=== PATIENT | female | born 1990 ===

== ENCOUNTER 2019-02-15 09:54 | Inpatient (IN) | payer OTHER ==
[2019-02-15] MEDS ORDERED: Ondansetron PF 4 MG/2 ML Vial IVP PRN ×3 (10:12→16:02)
[2019-02-15] MEDS ORDERED: hydrALAZINE 20 MG/ML VIAL SLOW IVP PRN ×2 (10:12→16:02)
[2019-02-15] MEDS ORDERED: Promethazine HCl 25 MG/ML VIAL IM PRN ×3 (10:12→16:02)
[2019-02-15] MEDS ORDERED: Lactated Ringer's 1,000 ML IV SCH (10:15)
[2019-02-15] MEDS ORDERED: CEFAZOLIN 2 GM in Premix Bag 1 BAG IVPB SCH (10:15)
[2019-02-15] MEDS ORDERED: Bicitra 30 ML UDCUP PO SCH (10:15)
[2019-02-15] MEDS ORDERED: Lidocaine 1% (PF) 30 ML VIAL ONE (10:16)
--- NOTE | 2019-02-15 10:16 | PDOC.LDHP ---
Labor and Delivery H&P Chief complaint: scheduled section HPI: 28 Y/O AT 39 AND 0/7 WEEKS FOR SCHEDULED DUE TO SUSPECTED CPD /LGA FETUS/NARROW PELVIC BONE STRUCTURE. Current gestational age (weeks): 39 Due date: 02/22/19 Grav: 2 Para: 0 Current complications: other Abnormal US findings: No Current medications: pre-gigi vitamins Previous surgical history: none Social history: none - Physical Exam Vital signs reviewed and normal: yes General: NAD, resting Heart: RRR Lungs: CTAB Abdomen: gravid Extremeties: no edema FHT: category 1 - Assessment L&D Assessment: scheduled primary section - Plan Plan: admit to L&D, to OR for section
[2019-02-15 11:07] VITALS: BMI 35.5
[2019-02-15 11:14] LABS: Hemoglobin 10.8 g/dL (12.0-16.0); Mean Corpuscular HGB CONC 33.5 g/dL (32.0-36.0); Mean Corpuscular Hemoglobin 30.5 pg (27.0-31.0); Mean Corpuscular Volume 91.3 fL (78.0-98.0); Mean Platelet Volume 7.8 fL (7.4-10.4); Platelet Count 267 thou/uL (130-400); RBC Distribution Width 11.4 % (11.5-14.5); Red Blood Cell (RBC) Count 3.53 mill/uL (4.20-5.40); White Blood Cell (WBC) Count 11.1 thou/uL (4.8-10.8)
[2019-02-15] MEDS ORDERED: Clindamycin/D5W 900 mg/50 ml Premix Bag ONE (11:34)
[2019-02-15] MEDS ORDERED: Fentanyl 100 MCG/2 ML VIAL ONE ×2 (11:48→13:48)
[2019-02-15] MEDS ORDERED: Oxytocin 10 UNITS/ML VIAL ONE (11:49)
[2019-02-15] MEDS ORDERED: ePHEDrine/0.9% NaCl/PF SYRINGE 50 mg/10 ml ONE (11:50)
[2019-02-15] MEDS ORDERED: MORPHINE 5 MG/10 ML PF VIAL ONE (11:50)
[2019-02-15] MEDS ORDERED: PHENYLEPHRINE-NS 100 MCG/ML 10 ML SYRINGE ONE (11:50)
[2019-02-15] MEDS ORDERED: Ketorolac Tromethamine 30 MG/ML VIAL ONE (11:51)
[2019-02-15 12:00] LABS: Syphilis Antibody Nonreactive (Nonreactive); Syphilis Antibody Index 0.04 S/CO (<1.00 Non-Reactive)
[2019-02-15 12:01] LABS: HBSAg Index 0.14 S/CO (0-0.99); Hep B Surf Ag Non-Reactive S/CO (NonReactive)
[2019-02-15] MEDS ORDERED: Clindamycin/D5W 900 MG in Premix Bag 1 BAG IVPB SCH (12:15)
[2019-02-15] MEDS ORDERED: diphenhydrAMINE 50 MG/ML VIAL IVP PRN (12:53)
[2019-02-15] MEDS ORDERED: Ondansetron HCl/PF 4 MG/2 ML Vial IVP PRN (12:53)
[2019-02-15] MEDS ORDERED: Meperidine HCl/PF 25 MG/ML VIAL SLOW IVP PRN (12:53)
[2019-02-15] MEDS ORDERED: Naloxone HCl 0.4 mg/ml Vial IV PRN (12:53)
[2019-02-15] MEDS ORDERED: Naloxone HCl 0.4 mg/ml Vial IVP PRN ×2 (12:53)
[2019-02-15] MEDS ORDERED: Promethazine HCl 25 MG SUPP PR PRN (12:53)
[2019-02-15] MEDS ORDERED: Methylergonovine 0.2 MG/ML VIAL ONE (12:55)
[2019-02-15] MEDS ORDERED: Communication Order-Pharmacy FS SCH (13:00)
[2019-02-15] MEDS ORDERED: KETAMINE 100 MG/ML (5ML VIAL) ONE (13:48)
[2019-02-15] MEDS ORDERED: Midazolam HCl 2 mg/2 ml Vial ONE (13:48)
[2019-02-15] MEDS ORDERED: Midazolam HCl 5 mg/5 ml Vial ONE (13:48)
[2019-02-15] MEDS ORDERED: Bicitra 30 ML UDCUP ONE (13:48)
[2019-02-15] MEDS ORDERED: NS / Oxytocin 40 units/1000ml 1,000 ML ONE (15:25)
[2019-02-15] MEDS ORDERED: Misoprostol 200 MCG TAB PR PRN (16:02)
[2019-02-15] MEDS ORDERED: NS / Oxytocin 40 units/1000ml 1,000 ML IV SCH (16:02)
[2019-02-15] MEDS ORDERED: Lanolin Ointment 7 GM TUBE TOP PRN (16:02)
[2019-02-15] MEDS ORDERED: Zolpidem Tartrate 5 MG TAB PO PRN (16:02)
[2019-02-15] MEDS ORDERED: Methylergonovine 0.2 MG/ML VIAL IM PRN (16:02)
[2019-02-15] MEDS ORDERED: Bisacodyl 10 MG SUPP PR PRN (16:02)
[2019-02-15] MEDS ORDERED: Adacel (T-DAP) 0.5 ML SYRINGE IM ONE (17:00)
[2019-02-15] MEDS ORDERED: Varicella virus, LIVE 0.5 ML VIAL SC ONE (17:00)
[2019-02-15] MEDS ORDERED: Measles/Mumps/Rubella 10 MCG/0.5 ML VIAL SC ONE (17:00)
[2019-02-15] MEDS: Ketorolac Tromethamine 30 MG/ML VIAL IVP PRN (18:56)
[2019-02-15] MEDS: Simethicone Chewable 80 MG TAB PO PRN (21:49)
[2019-02-15] MEDS: Docusate Calcium (SURFAK) 240 MG CAP PO SCH (21:50)
[2019-02-15] MEDS: Ibuprofen 800 MG TAB PO SCH (22:21)
[2019-02-16] MEDS: Ketorolac Tromethamine 30 MG/ML VIAL IVP PRN (04:27)
[2019-02-16] MEDS: HYDROcodone/Acetaminophen 5/325 mg Tablet PO PRN ×3 (04:28→16:55)
[2019-02-16] MEDS: Ibuprofen 800 MG TAB PO SCH ×3 (04:44→21:16)
--- NOTE | 2019-02-16 06:12 | PDOC.PP ---
Post Progress Note Post Day #: POD1 Subjective: Resting, no c/o. PO intake tolerated: yes Flatus: no Ambulation: no Vital Signs (12 hours) Temp Pulse Resp BP Pulse Ox 02/16/19 04:30 75 16 106/55 L 02/16/19 00:15 99.0 F 84 16 107/56 L 02/15/19 19:04 98.9 F 85 16 129/74 96 Weight Weight 99.79 kg - Physical Examination General: NAD Respiratory: non-labored breathing Abdominal: no distention, appropriately TTP Extremities: negative homans (B) Skin: CS incision dry & intact Neurological: no gross focal deficits Psychiatric: normal affect Result Diagrams: 02/15/19 11:05 Additional Labs: Post Labs Blood Type A POSITIVE 02/15/19 11:30 Hep Bs Antigen Non-Reactive S/CO (NonReactive) 02/15/19 11:05 - Assessment/Plan Doing well s/p 1* C/S. Routine postop care.
[2019-02-16 06:59] LABS: Hemoglobin 10.2 g/dL (12.0-16.0); Mean Corpuscular HGB CONC 33.6 g/dL (32.0-36.0); Mean Corpuscular Hemoglobin 30.7 pg (27.0-31.0); Mean Corpuscular Volume 91.3 fL (78.0-98.0); Mean Platelet Volume 7.8 fL (7.4-10.4); Platelet Count 245 thou/uL (130-400); RBC Distribution Width 11.7 % (11.5-14.5); Red Blood Cell (RBC) Count 3.32 mill/uL (4.20-5.40); White Blood Cell (WBC) Count 11.1 thou/uL (4.8-10.8)
[2019-02-16] MEDS: Prenatal Vitamin 1 TAB PO SCH (08:28)
[2019-02-16] MEDS: Docusate Calcium (SURFAK) 240 MG CAP PO SCH ×2 (08:29→21:16)
[2019-02-16] MEDS: Simethicone Chewable 80 MG TAB PO PRN ×2 (08:35→21:16)
[2019-02-17] MEDS: HYDROcodone/Acetaminophen 5/325 mg Tablet PO PRN ×4 (05:48→23:21)
[2019-02-17] MEDS: Ibuprofen 800 MG TAB PO SCH ×3 (05:48→21:25)
--- NOTE | 2019-02-17 08:29 | PDOC.PP ---
Post Progress Note Post Day #: 2 Subjective: Patient voiding, ambulating & tolerating PO well. Passing gas but no BM yet. Reports pain is well-controlled. No excess bleeding or incision site issues. Breast feeding and states it is going ok. PO intake tolerated: yes Flatus: yes Ambulation: yes Vital Signs (12 hours) Temp Pulse Resp BP Pulse Ox 02/17/19 00:30 98.5 F 75 16 100/51 L 02/16/19 21:15 98.6 F 80 16 110/65 98 Weight Weight 99.79 kg - Physical Examination General: NAD Cardiovascular: no m/r/g, RRR Respiratory: clear to auscultation bilaterally, non-labored breathing Abdominal: + bowel sounds, lochia, no distention, appropriately TTP Extremities: negative homans (B) Skin: CS incision dry & intact, no rash Neurological: no gross focal deficits Psychiatric: A&Ox3, normal affect Result Diagrams: 02/16/19 06:28 Additional Labs: Post Labs Blood Type A POSITIVE 02/15/19 11:30 Hep Bs Antigen Non-Reactive S/CO (NonReactive) 02/15/19 11:05 (1) care following delivery Code(s): Z39.2 - ENCOUNTER FOR ROUTINE FOLLOW-UP Status: Acute - Assessment/Plan 28YO who is PP day #2 s/p primary LTCS for suspected CPD/LGA fetus w/ narrow pelvic bone structure @ 39 WGA. PP day #2 s/p 1LTCS: - Patient doing well. Continue routine PP care. Dispo: Anticipate d/c home tomorrow. Addendum - Attending - Attending Attestation Date/Time: 02/19/19 3248 I personally evaluated the patient and discussed the management with Dr. Barba. I agree with the History, Examination, Assessment and Plan documented above.
[2019-02-17] MEDS: Docusate Calcium (SURFAK) 240 MG CAP PO SCH ×2 (09:08→21:25)
[2019-02-17] MEDS: Simethicone Chewable 80 MG TAB PO PRN ×2 (09:08→18:08)
[2019-02-17] MEDS: Prenatal Vitamin 1 TAB PO SCH (09:08)
[2019-02-18] MEDS: Ibuprofen 800 MG TAB PO SCH ×2 (05:26→14:19)
[2019-02-18 08:39] VITALS: BP 115/78; TEMP 97.7
[2019-02-18] MEDS: Docusate Calcium (SURFAK) 240 MG CAP PO SCH (09:27)
[2019-02-18] MEDS: Prenatal Vitamin 1 TAB PO SCH (09:27)
[2019-02-18] MEDS: HYDROcodone/Acetaminophen 5/325 mg Tablet PO PRN ×2 (09:43→17:24)
--- NOTE | 2019-02-19 14:36 | OP ---
DATE OF PROCEDURE: 02/15/2019 TIME OF SERVICE: At 1245, Central Standard Time. PREOPERATIVE DIAGNOSIS: Intrauterine at 39 weeks with a history of tpwuc-pub-lcmibgqkrbt-age fetus, suspected cephalopelvic disproportion. The patient declined trial of labor in preference of primary . POSTOPERATIVE DIAGNOSIS: Intrauterine at 39 weeks with a history of wkxez-qlb-aoynwvxkjgp-age fetus, suspected cephalopelvic disproportion. The patient declined trial of labor in preference of primary . PROCEDURE: Primary low transverse section. FINDINGS: Viable female infant weighing 3995 g or 8 pounds 13 ounces. Apgars of eight and nine. QUANTITATIVE BLOOD LOSS: 650 mL. COMPLICATIONS: None. DETAILS OF THE PROCEDURE: The patient was consented and taken back to the operating room where spinal anesthesia was found to be adequate. She was then prepped and draped in the normal sterile fashion. A timeout was performed by the entire operative team. The incision was then marked with a marking pen tested using sharp pickups. An incision was then made with a scalpel. The incision was carried through the adipose tissue down to the underlying rectus fascia using both sharp dissection as well as cautery. Once the fascia was identified, it was incised in the midline and then the fascial incision was carried through in both lateral directions using sharp as well as cautery dissection techniques. Next, the superior aspect of the rectus fascia was grasped with 2 Logan clamps, which was tented up and the rectus muscles were dissected off using blunt dissection as well as cautery dissection. Similarly, the inferior aspect of the fascial incision was grasped with 2 Logan clamps, tented up and the rectus muscles were dissected off bluntly as well as sharply. Next, the rectus muscles were in the midline and the peritoneum identified. The peritoneum was then carefully grasped with 2 hemostats and entered sharply. The peritoneal incision was extended superiorly and inferiorly and bladder blade was placed in the lower abdomen. At this point, the uterus was identified and the bladder flap was then developed using pickups with teeth as well as Metzenbaum scissors in both lateral directions. The bladder flap was then dissected downwards using the oil well service operator helper's finger as well as Metzenbaum scissors. The bladder blade was replaced. The lower uterine segment was then identified and entered sharply using a clean scalpel. The uterine incision was then dissected downwards until thin layer of muscle remained and this was entered bluntly using a hemostat to avoid any injury to the baby. The uterine incision was then stretched using two fingers in both lateral directions. An amniotomy was performed artificially using a hemostat and the baby was delivered using fundal pressure in a gentle fashion. Once out, the baby's mouth and nose were bulb suctioned, cord clamped and cut, and the baby was handed to waiting attendants. Next, the uterus was exteriorized, cleared of all clots and debris and the uterine incision was repaired with #1 Monocryl in a running locking fashion. A 2nd suture of the same type was used to obtain complete hemostasis at the uterine incision. The bladder flap was reapproximated using 3-0 Monocryl. Next, patient's left and right adnexa were inspected and appeared to be within normal limits. The posterior cul-de-sac was blotted dry and hemostasis assured. One more look at the uterine incision demonstrated hemostasis. Next, the uterus was replaced back within the abdomen. The peritoneum was reapproximated using 2-0 Monocryl without difficulty. The rectus muscles were then allowed to come back together and 0 chromic was used to aid in reapproximation of the muscle as necessary. The rectus fascia was then reapproximated in a running fashion using 0 Vicryl suture. The adipose tissue was then examined and appeared to be well approximated without any obvious separations. Finally, the skin was reapproximated with 3-0 Monocryl on a Jhon needle without difficulty and Dermabond adhesive was applied to the skin. Once the glue was dry, the drapes were removed and the patient was transferred to an ambulatory bed where she was taken to recovery awake and in stable condition. Sponge, lap, and needle counts were correct x3. Job ID: [id number]
== END 2019-02-18 18:15 | disposition home or self-care (01) | DRG 788 ==
LOC: L&D 09:54 → 3SW 17:05
PROVIDERS: ADMIT Obstetrics & Gynecology; ATTEND Obstetrics & Gynecology
PROC: 10D00Z1 Extraction of Products of Conception, Low, Open Approach (ICD-10-PCS; principal; 2019-02-16)
DX: O66.2 Obstructed labor due to unusually large fetus (principal); Z3A.39 39 weeks gestation of pregnancy; Z37.0 Single live birth
CPT/HCPCS: 36415; 51702; 85027; 86780; 86850; 86900; 86901; 87340; J1885; J2001; J2210; J2250; J2274; J2590; J3010; J3490